=== PATIENT | female | born 1930 | race Caucasian/White ===

== ENCOUNTER 2018-07-04 12:48 | Day surgery (SDC) | payer OTHER, MEDICARE ==
[~2018-07-04 12:48] MED LIST: PROPOFOL 200 MG INJ
== END 2018-07-04 16:08 | disposition other institution (70) ==
LOC: GIL 12:48
DX: R19.5 Other fecal abnormalities (principal); D12.2 Benign neoplasm of ascending colon; D12.5 Benign neoplasm of sigmoid colon; K64.4 Residual hemorrhoidal skin tags; E78.5 Hyperlipidemia, unspecified; I25.2 Old myocardial infarction; I25.10 Atherosclerotic heart disease of native coronary artery without angina pectoris; I11.0 Hypertensive heart disease with heart failure; I50.9 Heart failure, unspecified; J44.9 Chronic obstructive pulmonary disease, unspecified
CPT/HCPCS: 45385; 88305; 94002

== ENCOUNTER 2018-09-02 12:02 | Day surgery (SDC) | payer OTHER, MEDICARE ==
[2018-09-02] MEDS ORDERED: ETOMIDATE 20 MG INJ (17:07)
== END 2018-09-06 05:56 ==
LOC: GIL 12:02 → SDS 12:02
DX: K29.80 Duodenitis without bleeding (principal); E03.9 Hypothyroidism, unspecified; E78.5 Hyperlipidemia, unspecified; I12.9 Hypertensive chronic kidney disease with stage 1 through stage 4 chronic kidney disease, or unspecified chronic kidney disease; E11.22 Type 2 diabetes mellitus with diabetic chronic kidney disease; N18.3 Chronic kidney disease, stage 3 (moderate); I25.10 Atherosclerotic heart disease of native coronary artery without angina pectoris; J44.9 Chronic obstructive pulmonary disease, unspecified
CPT/HCPCS: 43239; 88305; 88312; 94002